=== PATIENT | male | born 1950 | race Caucasian/White ===

== ENCOUNTER 2019-12-28 09:50 | Day surgery (SDC) | payer MEDICARE, OTHER ==
[~2019-12-28] VITALS: Ht 167.6 cm; Wt 59.0 kg
[~2019-12-28 09:50] MED LIST: ALLEGRA ALLERG180 MG PO; COLACE100 MG PO; DEXILANT60 MG PO; METAMUCIL POWD174 GM PO; PANTOPRAZOLE SO40 MG PO; RANITIDINE HCL300 MG PO; ROSUVASTATIN CA10 MG PO; SUCRALFATE1 GM PO; TIZANIDINE HCL4 M1 PO; TURMERIC500 M2 PO
[2019-12-28] MEDS ORDERED: IBUPROFEN200 M1 PO (10:14)
--- NOTE | 2019-12-28 11:07 | NUR ---
PT RESTING IN BED WATCHING TV. LIGHTS DIMMED AND PT PROVIDED WARM BLANKET.
--- NOTE | 2019-12-28 13:55 | NUR ---
PT SPOUSE NOTIFIED OF APPROX WAIT TIME TO OR. PT RESTING IN DS RM 2 WITH EYES CLOSED, AROUSES WITH ENTRANCE TO RM. PT DENIES ANY NEEDS AT THIS TIME.
--- NOTE | 2019-12-28 14:52 | NUR ---
PT SPOUSE NOTIFIED OF PT TO OR
[2019-12-28] MEDS ORDERED: CELECOXIB200 MG PO (15:26)
[2019-12-28] MEDS ORDERED: HYDROCODON-ACE1 EA11 PO (15:27)
--- NOTE | 2019-12-28 16:04 | NUR ---
12/28/19 1604 Marivel Melvin 1532 PT ARRIVED IN PACU NON RESPONSIVE TO VERBAL STIMULI WITH OPA IN PLACE. 1537 PT REACTIVE. OPA REMOVED. 1550 CRYO CUFF PLACED ON R SHOULDER PER ORDERS. 1600 TO DS. REPORT GIVEN TO RN. PT WITH NO C/O'S. SLING IN PLACE.
--- NOTE | 2019-12-28 16:06 | NUR ---
PT ARRIVES TO DS RM 2 AWAKE AND ALERT. PT RESP EVEN AND UNLABORED, SATS GREATER THAN 94% ON RA. PT DENIES ANY NAUSEA OR PAIN. STATES RIGHT ARM IS "COMPLETELY NUMB WITH NO PAIN." DC CRITERIA EXPLAINED TO PT. PT FOLLOWS COMMANDS APPROPRIATELY, BUT EASILY DOSES OFF WITHOUT ANY STIMULATION. SPOUSE NOTIFIED OF PT ARRIVAL TO DS. CALL LIGHT WITHIN REACH.
--- NOTE | 2019-12-28 16:30 | NUR ---
[id number]: ICED WATER AND CRACKERS PROVIDED. PT SPOUSE IN RM AT BEDSIDE. PT CONT TO REST WITH CRYO CUFF IN PLACE, DENIES ANY PAIN STATES BLOCK IS STILL WORKING. DC CRITERIA EXPLAINED TO PT, PT ENC TO USE CALL LIGHT WITH URGE TO VOID. PT TOLERATES ORAL WITHOUT ANY NAUSEA. PT UP TO BATHROOM WITH RN ASSIST, DENIES ANY DIZZINESS OR NAUSEA WITH POSITION CHANGE. STEADY GAIT TO BATHROOM, ABLE TO VOID QS WITH NO PROBLEMS. PT BACK TO ROOM AND THIS RN ASSISTS PT WITH GETTING DRESSED, EDUCATION PROVIDED ABOUT SLING AND CRYOCUFF. DC INSTRUCTIONS PROVIDED VERBALLY AND WRITTEN TO SPOUSE AND PT, ALL QUESTIONS ADDRESSED. PT DC'S VIA WC TO PERSONAL VEHICLE AT MAIN ENTRANCE OF HOSPITAL TO HOME.
--- NOTE | 2019-12-29 08:18 | OR ---
[facility] [address] [place], [place] [address] Signed DATE OF OPERATION: 12/28/2019 SURGEON: Demi Parker MD PREOPERATIVE DIAGNOSIS: Rotator cuff tear, right shoulder. POSTOPERATIVE DIAGNOSIS: Partial rotator cuff tear, right shoulder. PROCEDURE PERFORMED: Right shoulder arthroscopy with partial debridement. 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 ANESTHESIA: General. BLOOD LOSS: None. IMPLANTS: None. BRIEF HISTORY: Janet is a 69-year-old gentleman with pain in his shoulder and [id number] thickness tear on his rotator cuff. Risks and benefits of operative treatment were discussed with him and he elected to proceed. DESCRIPTION OF PROCEDURE: Once consent was obtained, he was taken to the operating room. After adequate anesthesia, he was placed in a beach chair position. All downside pressure points were well padded. The shoulder was prepped and draped in standard sterile fashion. The shoulder was injected with 15 mL of 0.25% Marcaine with epinephrine as was subacromial space. Standard posterior portal was made and the scope was introduced in the shoulder. ARTHROSCOPIC FINDINGS: There was moderate synovitis throughout the shoulder. The subscapularis was intact. The biceps, biceps anchor, and labrum were intact. The glenohumeral surfaces were Electronically Signed By: DEMI PARKER MD 12/29/19 0818 PATIENT NAME: JANET DIMAS OPERATIVE REPORT DATE OF : 54 REPORT #: [id number] PHYSICIAN: DEMI PARKER MD PCP: ABELARDO EGAN MD REPORT IS CONFIDENTIAL AND NOT TO BE RELEASED WITHOUT AUTHORIZATION [facility] [address] [place], [place] [address] Signed intact with the exception of a little bit of chondromalacia anterosuperiorly into the biceps. The rotator cuff was noted to have a 1 to 1.5 cm partial-thickness tear on the undersurface. This was about 30% to 40% thickness. Subacromial space was clear pretty much. No significant bursitis or bursal thickening was scarring. Superior surface of the rotator cuff was intact. DESCRIPTION OF OPERATION: Diagnostic arthroscopy was undertaken as noted above. Standard anterior portal was made using an outside-in technique. The undersurface tear of the rotator cuff was debrided and thoroughly evaluated. The undersurface was debrided down to stable tissue that bled well. The scope was then withdrawn, placed in subacromial space and standard lateral portal was made. The bursa was removed in total to allow visualization of the superior surface. The surface had been marked with a needle where the undersurface tear was. This was completely intact and felt stable and tight. The undersurface of the acromion was type 1. The scope was then withdrawn. Portal was closed with 3-0 nylon. The shoulder was then injected with 60 mg Toradol at the end of the case. He tolerated the procedure well. All wounds were then sutured with 3-0 nylon and dressed with Allevyn dressing. He was placed in a sling, taken to the recovery room in satisfactory condition. Demi Parker MD BA/MODL /[id number] Copies: ~ Electronically Signed By: DEMI PARKER MD 12/29/19 0818 PATIENT NAME: JANET DIMAS OPERATIVE REPORT DATE OF : 54 REPORT #: [id number] PHYSICIAN: DEMI PARKER MD PCP: ABELARDO EGAN MD REPORT IS CONFIDENTIAL AND NOT TO BE RELEASED WITHOUT AUTHORIZATION
== END 2019-12-28 17:50 | disposition home or self-care (01) ==
LOC: DS 09:50
PROVIDERS: Specialist
PROC: 0RBJ4ZZ Excision of Right Shoulder Joint, Percutaneous Endoscopic Approach (ICD-10-PCS; principal; 2019-12-28 12:30)
DX: M75.111 Incomplete rotator cuff tear or rupture of right shoulder, not specified as traumatic (principal); M65.811 Other synovitis and tenosynovitis, right shoulder; Z79.899 Other long term (current) drug therapy
CPT/HCPCS: 00450; 64415; 76942; C1713; J0330; J0690; J1100; J1885; J2001; J2250; J2405; J2704; J2765; J2795; J3010; J7121

== ENCOUNTER 2022-08-19 07:17 | Emergency (ER) | payer MEDICARE, OTHER ==
[~2022-08-19] VITALS: Ht 167.6 cm; Wt 59.0 kg
[~2022-08-19 07:17] MED LIST changes: +CELECOXIB200 MG PO; +HYDROCODON-ACE1 EA11 PO; +IBUPROFEN200 M1 PO
== END 2022-08-19 09:25 | disposition home or self-care (01) ==
LOC: ED 07:17
DX: K59.00 Constipation, unspecified (principal); Z88.6 Allergy status to analgesic agent; Z88.1 Allergy status to other antibiotic agents; Z88.5 Allergy status to narcotic agent; Z79.899 Other long term (current) drug therapy
CPT/HCPCS: 36415; 51798; 80053; 85025; 99283-25; J2060